=== PATIENT | female | born 1960 | race American Indian/Alaskan Native ===

== ENCOUNTER 2017-04-04 22:01 | Emergency (ER) | payer MEDICARE ==
[2017-04-04 23:29] LABS: Hematocrit 38.8 % (30.3-42.9); Hemoglobin 12.7 gm/dl (10.1-14.3); Mean Corpuscular HGB Conc 33 % (30-34); Mean Corpuscular Hemoglobin 29 pg (28-32); Mean Corpuscular Volume 88 fl (79-97); Platelet Count 241 K/mm3 (140-440); Red Blood Count 4.39 M/mm3 (3.65-5.03); Red Cell Distribution Width 13.9 % (13.2-15.2); White Blood Count 7.5 K/mm3 (4.5-11.0)
--- NOTE | 2017-04-04 23:35 | Cat Scan Report ---
FINAL REPORT PROCEDURE: CT head without contrast. TECHNIQUE: Computerized tomography of the head was performed without contrast material. HISTORY: Headache. COMPARISON: CT head 07/02/2015. Dictation not available. FINDINGS: The patient has had a previous right frontal-temporal craniotomy. There are 2 aneurysm clips near the right side of the [place]. There is a small amount of extra-axial high attenuation material near the previous craniotomy. This is unchanged from the previous study and must represent some calcification within the meninges. There is some patchy, diminished attenuation within the right frontal, temporal and parietal lobes. This is consistent with encephalomalacia. There is some compensatory dilatation of the right lateral ventricle. There is a small focal area of diminished attenuation within the posterior portion of the left frontal lobe. This is close to the motor strip. This is also consistent with encephalomalacia. There are no mass lesions. There is no intracranial hemorrhage. The mastoid air cells are clear as far as visualized. There is mild mucosal thickening in the left posterior ethmoid air cell. IMPRESSION: Previous aneurysm surgery. Patchy bilateral areas of encephalomalacia as described. No evidence of definite change since the previous study.
[2017-04-04 23:47] LABS: INR 1.08 (0.87-1.13); Partial Thromboplastin Time 24.7 Sec. (24.2-36.6)
[2017-04-04 23:50] LABS: Albumin 3.4 g/dL (3.9-5); Albumin/Globulin Ratio 0.7 %; Alkaline Phosphatase 105 units/L (35-129); Blood Urea Nitrogen 12 mg/dL (7-17); Calcium 9.1 mg/dL (8.4-10.2); Carbon Dioxide 29 mmol/L (22-30); Chloride 101.3 mmol/L (98-107); Glucose 83 mg/dL (65-100); Sodium 143 mmol/L (137-145); Total Protein 8.2 g/dL (6.3-8.2)
[2017-04-05] MEDS ORDERED: REGLAN IV ONE (00:04)
[2017-04-05] MEDS ORDERED: NACL 0.9% 1000 ML 1,000 ML IV ONE (00:04)
[2017-04-05] MEDS ORDERED: ATIVAN IV ONE (00:04)
[2017-04-05 00:08] LABS: Alanine Aminotransferase 12 units/L (7-56); Anion Gap 17 mmol/L; Potassium 3.8 mmol/L (3.6-5.0)
--- NOTE | 2017-04-05 00:35 | Emergency Department Report ---
ED Headache HPI - General Chief Complaint: Headache Stated Complaint: DIZZINESS/HEADACHE Time Seen by Provider: 04/04/17 23:38 Source: patient, family Exam Limitations: no limitations - History of Present Illness Initial Comments: 56-year-old female presents to the emergency department complaining of headache. Patient reports onset of right-sided headache beginning earlier today. She reports the headache is behind her right eye and radiates to her face and over the top of her head down to her neck. Patient is unable to describe the pain. She reports mild nausea, but denies vomiting. There has been no blurry vision. There are no other complaints. Timing/Duration: other (this morning) Quality: mild Head Injury Location: occipital, parietal Recent Head Trauma: no recent headache/trauma Associated Symptoms: nausea/vomiting (nausea only) Allergies/Adverse Reactions: Allergies Penicillins Allergy (Verified 01/21/15 11:54) Hives Home Medications: Ambulatory Orders Aspirin [Aspirin TAB] 325 mg PO QDAY 01/21/15 Atorvastatin [Lipitor] 40 mg PO QHS 01/21/15 Lacosamide [Vimpat] 100 mg PO Q12HR 01/21/15 Lisinopril [Zestril TAB] 5 mg PO QDAY 01/21/15 Metoprolol [Lopressor TAB] 25 mg PO DAILY 01/21/15 Sertraline [Zoloft] 100 mg PO QDAY 01/21/15 levETIRAcetam [Keppra TAB] 750 mg PO BID 01/21/15 Gabapentin [Neurontin] 300 mg PO DAILY 07/02/15 Omeprazole [PriLOSEC] 20 mg PO QDAY 07/02/15 Pantoprazole [Protonix TAB] 40 mg PO QDAY 07/02/15 QUEtiapine [SEROquel] 50 mg PO QHS 07/02/15 hydrALAZINE [Apresoline TAB] 25 mg PO Q8H 07/02/15 Butalb/Acetamin/Caff 50-325-40 [Fioricet] 1 each PO Q4H PRN #20 tablet 04/05/17 ED Review of Systems ROS: Stated complaint: DIZZINESS/HEADACHE Other details as noted in HPI Comment: All other systems reviewed and negative Gastrointestinal: nausea Neurological: headache ED Past Medical Hx - Past Medical History Previous Medical History?: Yes Hx Hypertension: Yes 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 aneurysm - Surgical History Past Surgical History?: Yes Hx Coronary Stent: No Hx Internal Defibrillator: No Additional Surgical History: sweat glands rmoved from armpits, groin, and under breast. hysterectomy. clip to brain - Family History Family history: no significant - Social History Smoking Status: Current Every Day Smoker Substance Use Type: None - Medications Home Medications: Home Medications Medication Instructions Recorded Confirmed Last Taken Type Aspirin [Aspirin TAB] 325 mg PO QDAY 01/21/15 07/02/15 Unknown History Atorvastatin [Lipitor] 40 mg PO QHS 01/21/15 07/02/15 Unknown History Lacosamide [Vimpat] 100 mg PO Q12HR 01/21/15 07/02/15 Unknown History Lisinopril [Zestril TAB] 5 mg PO QDAY 01/21/15 07/02/15 Unknown History Metoprolol [Lopressor TAB] 25 mg PO DAILY 01/21/15 07/02/15 Unknown History Sertraline [Zoloft] 100 mg PO QDAY 01/21/15 07/02/15 Unknown History levETIRAcetam [Keppra TAB] 750 mg PO BID 01/21/15 07/02/15 Unknown History Gabapentin [Neurontin] 300 mg PO DAILY 07/02/15 07/02/15 Unknown History Omeprazole [PriLOSEC] 20 mg PO QDAY 07/02/15 07/02/15 Unknown History Pantoprazole [Protonix TAB] 40 mg PO QDAY 07/02/15 07/02/15 Unknown History QUEtiapine [SEROquel] 50 mg PO QHS 07/02/15 07/02/15 Unknown History hydrALAZINE [Apresoline TAB] 25 mg PO Q8H 07/02/15 07/02/15 Unknown History Butalb/Acetamin/Caff 50-325-40 1 each PO Q4H PRN #20 tablet 04/05/17 Unknown Rx [Fioricet] ED Physical Exam - General Limitations: No Limitations General appearance: alert, in no apparent distress - Head Head exam: Present: atraumatic, normocephalic - Eye Eye exam: Present: normal appearance, PERRL, EOMI - ENT ENT exam: Present: normal exam, normal orophraynx, mucous membranes moist - Neck Neck exam: Present: normal inspection, full ROM. Absent: tenderness - Respiratory Respiratory exam: Present: normal lung sounds bilaterally. Absent: respiratory distress - Cardiovascular Cardiovascular Exam: Present: regular rate, normal rhythm, normal heart sounds - GI/Abdominal GI/Abdominal exam: Present: soft, normal bowel sounds. Absent: distended, tenderness - Extremities Exam Extremities exam: Present: normal inspection, full ROM. Absent: tenderness - Back Exam Back exam: Present: normal inspection, full ROM. Absent: tenderness - Neurological Exam Neurological exam: Present: alert, oriented X3. Absent: motor sensory deficit - Skin Skin exam: Present: warm, dry, intact ED Course Vital Signs 04/04/17 04/05/17 04/05/17 22:11 00:00 00:40 Temperature 98.0 F Pulse Rate 65 68 Respiratory 18 15 20 Rate Blood Pressure 157/114 Blood Pressure 142/87 [Right] O2 Sat by Pulse 97 95 94 Oximetry 04/05/17 03:00 Temperature Pulse Rate 68 Respiratory 16 Rate Blood Pressure Blood Pressure 140/91 [Right] O2 Sat by Pulse 95 Oximetry ED Medical Decision Making - Lab Data Result diagrams: 04/04/17 23:11 04/04/17 23:11 - EKG Data -: EKG Interpreted by Sc EKG shows normal: sinus rhythm, axis, QRS complexes, ST-T waves Rate: normal - EKG Data When compared to previous EKG there are: no significant change Interpretation: unchanged when compared t (07/02/2015), other (first degree AV block) - Radiology Data Radiology results: report reviewed Head CT shows no acute intracranial abnormality. - Medical Decision Making Lab and imaging results reviewed and discussed with the patient and family. Patient reports feeling better with medication. Patient will be discharged home at this time. - Differential Diagnosis tension headache, migraine headache, dehydration Critical care attestation.: If time is entered above; I have spent that time in minutes in the direct care of this critically ill patient, excluding procedure time. ED Disposition Clinical Impression: Headache Qualifiers: Headache type: tension-type Headache chronicity pattern: acute headache Intractability: not intractable Qualified Code(s): G44.209 - Tension-type headache, unspecified, not intractable Disposition: DC- TO HOME OR SELFCARE Is pt being admited?: No Condition: Stable Instructions: Acute Headache (ED) Prescriptions: Butalb/Acetamin/Caff 50-325-40 [Fioricet] 1 each PO Q4H PRN #20 tablet PRN Reason: Headache Referrals: PRIMARY CARE, [Primary Care Provider] - 3-5 Days Time of Disposition: 06:21
[2017-04-05 00:45] LABS: Blastocytes % (Manual) 0 %; Diff Status Complete; Platelet Estimate Consistent w Auto; RBC Morphology Normal
[2017-04-05 06:34] VITALS: BP 145/89
== END 2017-04-05 07:16 | disposition home or self-care (01) ==
LOC: ED 22:01
DX: R51 Headache (principal); R11.0 Nausea; I10 Essential (primary) hypertension; M19.90 Unspecified osteoarthritis, unspecified site; F32.9 Major depressive disorder, single episode, unspecified; F03.90 Unspecified dementia, unspecified severity, without behavioral disturbance, psychotic disturbance, mood disturbance, and anxiety; F17.210 Nicotine dependence, cigarettes, uncomplicated; Z79.82 Long term (current) use of aspirin; Z86.73 Personal history of transient ischemic attack (TIA), and cerebral infarction without residual deficits; Z88.0 Allergy status to penicillin
CPT/HCPCS: 36415; 70450; 80053; 85007; 85025; 85610; 85730; 93005; 93010; 96361; 96374; 96375; 99284; J2060; J2765; J7030

== ENCOUNTER 2017-08-14 14:58 | Emergency (ER) | payer MEDICARE, MEDICAID ==
[2017-08-14 16:07] LABS: Hematocrit 41.2 % (30.3-42.9); Hemoglobin 13.5 gm/dl (10.1-14.3); Mean Corpuscular HGB Conc 33 % (30-34); Mean Corpuscular Hemoglobin 29 pg (28-32); Mean Corpuscular Volume 88 fl (79-97); Platelet Count 224 K/mm3 (140-440); Red Blood Count 4.66 M/mm3 (3.65-5.03); Red Cell Distribution Width 14.7 % (13.2-15.2)
[2017-08-14 16:30] LABS: Anion Gap 16 mmol/L; BUN/Creatinine Ratio 16; Blood Urea Nitrogen 11 mg/dL (7-17); Calcium 9.1 mg/dL (8.4-10.2); Carbon Dioxide 28 mmol/L (22-30); Chloride 104.4 mmol/L (98-107); Glucose 112 mg/dL (65-100); Potassium 3.7 mmol/L (3.6-5.0); Sodium 145 mmol/L (137-145)
[2017-08-14 18:15] LABS: Bacteria,Urine 2+ /HPF (Negative); Mucus,Urine FEW /HPF
[2017-08-14 18:16] LABS: Bilirubin,Urine Negative (Negative)
[2017-08-14 18:17] LABS: Blood,Urine Moderate (Negative); Ketones,Urine Negative (Negative); Protein,Urine <15 mg/dL mg/dL (Negative); Urobilinogen,Urine < 2.0 mg/dL (<2.0)
[2017-08-14 18:18] LABS: Leukocyte Esterase,Urine Small (Negative); Nitrite,Urine Negative (Negative)
--- NOTE | 2017-08-14 18:45 | XRay Report ---
FINAL REPORT PROCEDURE: XR ANKLE 3+V LT TECHNIQUE: Three views of the left ankle are obtained HISTORY: fall ankle pain COMPARISON: No prior studies are available for comparison. FINDINGS: Soft tissue swelling is seen. There is no widening of the ankle mortise. There is a tiny bony sliver adjacent to the dorsum of the distal talus. This could possibly be a small avulsed fracture fragment, but could be old or an accessory ossicle. IMPRESSION: Possible small avulsion fracture is seen of the dorsum of the distal talus.
--- NOTE | 2017-08-14 18:46 | XRay Report ---
FINAL REPORT PROCEDURE: XR KNEE 3V LT TECHNIQUE: Three views of the left knee are obtained HISTORY: fall knee pain COMPARISON: No prior studies are available for comparison. FINDINGS: Moderate osteoarthritic changes are seen. Small joint effusion is seen. No fracture or dislocation is seen. IMPRESSION: No fracture is seen.
--- NOTE | 2017-08-14 18:47 | XRay Report ---
FINAL REPORT PROCEDURE: XR HIP 2-3V LT TECHNIQUE: AP view of the pelvis and lateral view of the left hip are obtained HISTORY: fall hip pain COMPARISON: No prior studies are available for comparison. FINDINGS: No widening of the symphysis pubis or SI joints is seen. Arthritic changes are seen in the lower lumbar spine but no arthritic changes are seen in the hips. No fracture or dislocation is seen. IMPRESSION: No fracture is seen.
[2017-08-14] MEDS ORDERED: TORADOL IM ONE (20:26)
[2017-08-14] MEDS ORDERED: TORADOL ONE (20:45)
--- NOTE | 2017-08-14 20:48 | Emergency Department Report ---
ED Fall HPI - General Chief Complaint: Fall Stated Complaint: FALL,LEFT LEG INJURY Time Seen by Provider: 08/14/17 19:43 Source: patient Mode of arrival: Ambulatory - History of Present Illness Initial Comments: pt is a 57 y/o aaf with hx extensive medical hx, ,including arthralgia, chf, copd, cva Dm II and htn, pt has primary care doctor for good follow up could not get appointment for today, s/p fall in bathroom this am, pt advises that "I slipped on the bathroom floor and twisted my knee and ankle" this am the was no loc patients was immediately ambulatory after incident, pt complains for hip knee and ankle pain 4/10 aching primary pain to left medial ankle., pt states pain with ambulation. MD Complaint: fall Onset/Timin -: days(s) Fall From: standing When Fall Occurred: other (10) Fall Witnessed: no Place Fall Occurred: home Loss of Consciousness: none Prolonged Down Time?: no Symptoms Prior to Fall: none Location: other (hip, knee, and ankle left side ) Location - Extremities: Left: Knee, Ankle Severity scale (0 -10): 4 Quality: aching Context: tripped/slipped Associated Symptoms: denies - Related Data Home Medications Medication Instructions Recorded Confirmed Last Taken Aspirin [Aspirin TAB] 325 mg PO QDAY 01/21/15 08/14/17 Unknown Atorvastatin [Lipitor] 40 mg PO QHS 01/21/15 08/14/17 Unknown Lacosamide [Vimpat] 100 mg PO Q12HR 01/21/15 08/14/17 Unknown Lisinopril [Zestril TAB] 5 mg PO QDAY 01/21/15 08/14/17 Unknown Metoprolol [Lopressor TAB] 25 mg PO DAILY 01/21/15 08/14/17 Unknown Sertraline [Zoloft] 100 mg PO QDAY 01/21/15 08/14/17 Unknown levETIRAcetam [Keppra TAB] 750 mg PO BID 01/21/15 08/14/17 Unknown Gabapentin [Neurontin] 300 mg PO DAILY 07/02/15 08/14/17 Unknown Pantoprazole [Protonix TAB] 40 mg PO QDAY 07/02/15 08/14/17 Unknown QUEtiapine [SEROquel] 50 mg PO QHS 07/02/15 08/14/17 Unknown Doxycycline [Vibramycin] 100 mg PO BID PRN 08/14/17 08/14/17 Unknown Norvasc 5 mg PO BID 08/14/17 08/14/17 Unknown Ondansetron [Zofran Odt] 4 mg PO DAILY 08/14/17 08/14/17 Unknown traMADol [Ultram] 50 mg PO Q4HR PRN 08/14/17 08/14/17 Unknown Previous Rx's Medication Instructions Recorded Last Taken Type Butalb/Acetamin/Caff 50-325-40 1 each PO Q4H PRN #20 tablet 04/05/17 Unknown Rx [Fioricet] traMADol [Ultram] 50 mg PO Q8HR PRN #20 tablet 08/14/17 Unknown Rx Allergies Allergy/AdvReac Type Severity Reaction Status Date / Time Penicillins Allergy Hives Verified 01/21/15 11:54 ED Review of Systems ROS: Stated complaint: FALL,LEFT LEG INJURY Other details as noted in HPI Constitutional: denies: chills, fever Eyes: denies: eye pain, eye discharge, vision change ENT: denies: ear pain, throat pain Respiratory: denies: cough, shortness of breath, wheezing Cardiovascular: denies: chest pain, palpitations Endocrine: no symptoms reported Gastrointestinal: denies: abdominal pain, nausea, diarrhea Genitourinary: denies: urgency, dysuria, discharge Musculoskeletal: arthralgia, other (left hip, knee and ankle pain ). 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 aneurysm - Surgical History Hx Coronary Stent: No Hx Internal Defibrillator: No Additional Surgical History: sweat glands rmoved from armpits, groin, and under breast. hysterectomy. clip to brain - Social History Smoking Status: Unknown if ever smoked Substance Use Type: None - Medications Home Medications: Home Medications Medication Instructions Recorded Confirmed Last Taken Type Aspirin [Aspirin TAB] 325 mg PO QDAY 01/21/15 08/14/17 Unknown History Atorvastatin [Lipitor] 40 mg PO QHS 01/21/15 08/14/17 Unknown History Lacosamide [Vimpat] 100 mg PO Q12HR 01/21/15 08/14/17 Unknown History Lisinopril [Zestril TAB] 5 mg PO QDAY 01/21/15 08/14/17 Unknown History Metoprolol [Lopressor TAB] 25 mg PO DAILY 01/21/15 08/14/17 Unknown History Sertraline [Zoloft] 100 mg PO QDAY 01/21/15 08/14/17 Unknown History levETIRAcetam [Keppra TAB] 750 mg PO BID 01/21/15 08/14/17 Unknown History Gabapentin [Neurontin] 300 mg PO DAILY 07/02/15 08/14/17 Unknown History Pantoprazole [Protonix TAB] 40 mg PO QDAY 07/02/15 08/14/17 Unknown History QUEtiapine [SEROquel] 50 mg PO QHS 07/02/15 08/14/17 Unknown History Butalb/Acetamin/Caff 50-325-40 1 each PO Q4H PRN #20 tablet 04/05/17 08/14/17 Unknown Rx [Fioricet] Doxycycline [Vibramycin] 100 mg PO BID PRN 08/14/17 08/14/17 Unknown History Norvasc 5 mg PO BID 08/14/17 08/14/17 Unknown History Ondansetron [Zofran Odt] 4 mg PO DAILY 08/14/17 08/14/17 Unknown History traMADol [Ultram] 50 mg PO Q4HR PRN 08/14/17 08/14/17 Unknown History traMADol [Ultram] 50 mg PO Q8HR PRN #20 tablet 08/14/17 Unknown Rx ED Physical Exam - General Limitations: No Limitations General appearance: alert, in no apparent distress - Head Head exam: Present: atraumatic, normocephalic - Eye Eye exam: Present: normal appearance - ENT ENT exam: Present: mucous membranes moist - Neck Neck exam: Present: normal inspection - Respiratory Respiratory exam: Present: normal lung sounds bilaterally. Absent: respiratory distress - Cardiovascular Cardiovascular Exam: Present: regular rate, normal rhythm. Absent: systolic murmur, diastolic murmur, rubs, gallop - GI/Abdominal GI/Abdominal exam: Present: soft, normal bowel sounds - Rectal Rectal exam: Present: deferred - Extremities Exam Extremities exam: Present: tenderness (left ankle ), normal capillary refill, joint swelling. Absent: pedal edema, calf tenderness - Expanded Lower Extremity Exam Left Hip exam: Present: tenderness (left lateral hip no swelling no ecchymosis no erythema no stepoff rom intact unrestricted ). Absent: swelling, laceration, ecchymosis, deformity, crepidus, dislocation, erythema, external rotation, internal rotation, shortening, pelvic stability Upper Leg exam: Present: normal inspection, full ROM Knee exam: Present: tenderness, pain w/ pronation/supination, full knee extension. Absent: swelling, abrasion, laceration, ecchymosis, deformity, crepidus, dislocation, posterior draw sign, pain/laxity with valgus, pain/ laxity with varus Lower Leg exam: Present: normal inspection, full ROM Ankle exam: Present: tenderness, swelling (left ankle pain to left medial ankle pain with rotation pt is ambulatory ppepb+2 negative thompsons ). Absent: abrasion, laceration, ecchymosis, deformity, crepidus, dislocation, erythema, anterior draw sign Foot/Toe exam: Present: normal inspection. Absent: tenderness, abrasion, laceration, ecchymosis, deformity, crepidus, dislocation, erythema, amputation, puncture wound, foreign body, calcaneal tenderness, tenderness at base of 5th metatarsal, nail avulsion, subungual hematoma Neuro vascular tendon exam: Present: no vascular compromise. Absent: pulse deficit, abnormal cap refill, motor deficit, sensory deficit, tendon deficit, extremity cold to touch, pallor, abnormal 2-point discrimination, decreased fine /light touch, foot drop, peroneal nerve deficit, significant pain with passive ROM of distal joint Gait: Positive: observed and limited by pain ED Course Vital Signs 08/14/17 15:33 Temperature 100.1 F H Pulse Rate 84 Respiratory 18 Rate Blood Pressure 141/88 O2 Sat by Pulse 94 Oximetry ED Medical Decision Making - Lab Data Result diagrams: 08/14/17 15:51 08/14/17 15:51 - Radiology Data Radiology results: report reviewed, image reviewed negative hip, and knee, left ankle ? small closed talus avulsion fracture, - Medical Decision Making pt is a 57 y/o aaf with hx extensive medical hx, ,including arthralgia, chf, copd, cva Dm II and htn, pt has primary care doctor for good follow up could not get appointment for today, s/p fall in bathroom this am, pt advises that "I slipped on the bathroom floor and twisted my knee and ankle" this am the was no loc patients was immediately ambulatory after incident, pt complains for hip knee and ankle pain 4/10 aching primary pain to left medial ankle., pt states pain with ambulation exam pt appears well nad, left ankle is stable pain to medial rotation on ecchymosis no erythema no step off, pt is weight bearing , xray noted ? small tulus avulision fracture, plan mary wrap, ortho shoe, at time pt is ambulatory to baseline per patient , pt for dc to self to home vial pov and family member pt will follow up with podiatry Dr. Bassett in 2 days as scheduled will call tomorrow to confirm appointment. pain is now rated at 2/10 aching , , pt denies symptoms no urgency no frequency no dysuria no hematuria, pt will follow up primary care doctor in 2-3 for follow up ua as she states this is a chronic finding. pt and family member verbalized agreement and understanding of discharge plan. Critical care attestation.: If time is entered above; I have spent that time in minutes in the direct care of this critically ill patient, excluding procedure time. ED Disposition Clinical Impression: Closed fracture of talus of left ankle Qualifiers: Encounter type: initial encounter Fracture morphology: avulsion Fracture alignment: nondisplaced Qualified Code(s): S92.155A - Nondisplaced avulsion fracture (chip fracture) of left talus, initial encounter for closed fracture Fall Qualifiers: Encounter type: initial encounter Qualified Code(s): W19.XXXA - Unspecified fall, initial encounter Disposition: DC-01 TO HOME OR SELFCARE Is pt being admited?: No Does the pt Need Aspirin: No Condition: Good Instructions: Ankle Fracture (ED), Ankle Exercises (GEN) Additional Instructions: follow up Dr. Bassett Podiatry tomorrow call for apointment Prescriptions: traMADol [Ultram] 50 mg PO Q8HR PRN #20 tablet PRN Reason: Pain Referrals: PRIMARY CARE, [Primary Care Provider] - 3-5 Days Forms: Work/School Release Form(ED) Time of Disposition: 21:05
[2017-08-15 01:13] VITALS: BP 149/97
== END 2017-08-14 21:00 | disposition home or self-care (01) ==
LOC: ED 14:58
DX: S92.155A Nondisplaced avulsion fracture (chip fracture) of left talus, initial encounter for closed fracture (principal); Z86.73 Personal history of transient ischemic attack (TIA), and cerebral infarction without residual deficits; R56.9 Unspecified convulsions; M19.90 Unspecified osteoarthritis, unspecified site; F32.9 Major depressive disorder, single episode, unspecified; F03.90 Unspecified dementia, unspecified severity, without behavioral disturbance, psychotic disturbance, mood disturbance, and anxiety; Z79.82 Long term (current) use of aspirin; W01.0XXA Fall on same level from slipping, tripping and stumbling without subsequent striking against object, initial encounter; Y93.89 Activity, other specified; Y92.89 Other specified places as the place of occurrence of the external cause; Y99.8 Other external cause status
CPT/HCPCS: 36415; 73502; 73562; 73610; 80048; 81001; 85027; 96372; 99284; J1885

== ENCOUNTER 2017-10-12 00:17 | Emergency (ER) | payer MEDICAID, MEDICARE ==
[2017-10-12] MEDS ORDERED: KEPPRA 1,000 MG/NS 0.75% 100ML 1,000 MG/100 ML BAG IV ONE (01:00)
[2017-10-12 01:03] VITALS: BP 144/85
[2017-10-12 01:38] LABS: Basophils # (Auto) 0.1 K/mm3 (0.0-0.1); Basophils % (Auto) 1.5 % (0.0-1.8); Eosinophils # (Auto) 0.1 K/mm3 (0.0-0.4); Eosinophils % (Auto) 1.9 % (0.0-4.3); Hematocrit 42.7 % (30.3-42.9); Hemoglobin 14.4 gm/dl (10.1-14.3); Lymphocytes # (Auto) 2.3 K/mm3 (1.2-5.4); Lymphocytes % (Auto) 29.7 % (13.4-35.0); Mean Corpuscular HGB Conc 34 % (30-34); Mean Corpuscular Hemoglobin 30 pg (28-32); Mean Corpuscular Volume 88 fl (79-97); Monocytes # (Auto) 0.5 K/mm3 (0.0-0.8); Platelet Count 244 K/mm3 (140-440); Red Blood Count 4.87 M/mm3 (3.65-5.03); Red Cell Distribution Width 14.6 % (13.2-15.2)
[2017-10-12 02:09] LABS: BUN/Creatinine Ratio 22; Blood Urea Nitrogen 13 mg/dL (7-17); Calcium 8.9 mg/dL (8.4-10.2); Hemolysis Index 27
--- NOTE | 2017-10-12 02:12 | Emergency Department Report ---
ED General Adult HPI - General Chief complaint: Seizure Stated complaint: SEIZURE Time Seen by Provider: 10/12/17 00:39 Source: patient, EMS Mode of arrival: Stretcher Limitations: No Limitations - History of Present Illness Initial comments: Patient is a 57-year-old female past medical history seizures controlled on Keppra who presents status post seizure. History is obtained by patient she states that she takes Keppra and gabapentin for her seizures. Patient states that she is not any pain and her daughter states that she had a seizure for about 20 seconds. Patient was given Versed by EMS. Patient denies having nausea or vomiting and she states that she takes her seizure medication her neurologist is at [place]. Severity scale (0 -10): 0 - Related Data Home Medications Medication Instructions Recorded Confirmed Last Taken Aspirin [Aspirin TAB] 325 mg PO QDAY 01/21/15 08/14/17 Unknown Atorvastatin [Lipitor] 40 mg PO QHS 01/21/15 08/14/17 Unknown Lacosamide [Vimpat] 100 mg PO Q12HR 01/21/15 08/14/17 Unknown Lisinopril [Zestril TAB] 5 mg PO QDAY 01/21/15 08/14/17 Unknown Metoprolol [Lopressor TAB] 25 mg PO DAILY 01/21/15 08/14/17 Unknown Sertraline [Zoloft] 100 mg PO QDAY 01/21/15 08/14/17 Unknown levETIRAcetam [Keppra TAB] 750 mg PO BID 01/21/15 08/14/17 Unknown Gabapentin [Neurontin] 300 mg PO DAILY 07/02/15 08/14/17 Unknown Pantoprazole [Protonix TAB] 40 mg PO QDAY 07/02/15 08/14/17 Unknown QUEtiapine [SEROquel] 50 mg PO QHS 07/02/15 08/14/17 Unknown Doxycycline [Vibramycin] 100 mg PO BID PRN 08/14/17 08/14/17 Unknown Norvasc 5 mg PO BID 08/14/17 08/14/17 Unknown Ondansetron [Zofran Odt] 4 mg PO DAILY 08/14/17 08/14/17 Unknown traMADol [Ultram] 50 mg PO Q4HR PRN 08/14/17 08/14/17 Unknown Previous Rx's Medication Instructions Recorded Last Taken Type Butalb/Acetamin/Caff 50-325-40 1 each PO Q4H PRN #20 tablet 04/05/17 Unknown Rx [Fioricet] traMADol [Ultram] 50 mg PO Q8HR PRN #20 tablet 08/14/17 Unknown Rx Allergies Allergy/AdvReac Type Severity Reaction Status Date / Time Penicillins Allergy Hives Verified 01/21/15 11:54 ED Review of Systems ROS: Stated complaint: SEIZURE Other details as noted in HPI Constitutional: denies: chills, fever Eyes: denies: eye pain, eye discharge, vision change ENT: denies: ear pain, throat pain Respiratory: denies: cough, shortness of breath, wheezing Cardiovascular: denies: chest pain, palpitations Endocrine: no symptoms reported Gastrointestinal: denies: abdominal pain, nausea, diarrhea Genitourinary: denies: urgency, dysuria, discharge Musculoskeletal: denies: back pain, joint swelling, arthralgia Skin: denies: rash, lesions Neurological: other (seizure ). 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 aneurysm - Surgical History Past Surgical History?: Yes Hx Coronary Stent: No Hx Internal Defibrillator: No Additional Surgical History: sweat glands rmoved from armpits, groin, and under breast. hysterectomy. clip to brain - Social History Smoking Status: Never Smoker - Medications Home Medications: Home Medications Medication Instructions Recorded Confirmed Last Taken Type Aspirin [Aspirin TAB] 325 mg PO QDAY 01/21/15 08/14/17 Unknown History Atorvastatin [Lipitor] 40 mg PO QHS 01/21/15 08/14/17 Unknown History Lacosamide [Vimpat] 100 mg PO Q12HR 01/21/15 08/14/17 Unknown History Lisinopril [Zestril TAB] 5 mg PO QDAY 01/21/15 08/14/17 Unknown History Metoprolol [Lopressor TAB] 25 mg PO DAILY 01/21/15 08/14/17 Unknown History Sertraline [Zoloft] 100 mg PO QDAY 01/21/15 08/14/17 Unknown History levETIRAcetam [Keppra TAB] 750 mg PO BID 01/21/15 08/14/17 Unknown History Gabapentin [Neurontin] 300 mg PO DAILY 07/02/15 08/14/17 Unknown History Pantoprazole [Protonix TAB] 40 mg PO QDAY 07/02/15 08/14/17 Unknown History QUEtiapine [SEROquel] 50 mg PO QHS 07/02/15 08/14/17 Unknown History Butalb/Acetamin/Caff 50-325-40 1 each PO Q4H PRN #20 tablet 04/05/17 08/14/17 Unknown Rx [Fioricet] Doxycycline [Vibramycin] 100 mg PO BID PRN 08/14/17 08/14/17 Unknown History Norvasc 5 mg PO BID 08/14/17 08/14/17 Unknown History Ondansetron [Zofran Odt] 4 mg PO DAILY 08/14/17 08/14/17 Unknown History traMADol [Ultram] 50 mg PO Q4HR PRN 08/14/17 08/14/17 Unknown History traMADol [Ultram] 50 mg PO Q8HR PRN #20 tablet 08/14/17 Unknown Rx ED Physical Exam - General Limitations: No Limitations General appearance: alert, in no apparent distress - Head Head exam: Present: atraumatic, normocephalic - Eye Eye exam: Present: normal appearance - ENT ENT exam: Present: mucous membranes moist - Neck Neck exam: Present: normal inspection - Respiratory Respiratory exam: Present: normal lung sounds bilaterally. Absent: respiratory distress - Cardiovascular Cardiovascular Exam: Present: regular rate, normal rhythm. Absent: systolic murmur, diastolic murmur, rubs, gallop - GI/Abdominal GI/Abdominal exam: Present: soft, normal bowel sounds - Extremities Exam Extremities exam: Present: normal inspection - Back Exam Back exam: Present: normal inspection - Neurological Exam Neurological exam: Present: alert, oriented X3 - Psychiatric Psychiatric exam: Present: normal affect, normal mood - Skin Skin exam: Present: warm, dry, intact, normal color. Absent: rash ED Course Vital Signs 10/12/17 01:00 Temperature 98.5 F Pulse Rate 113 H Respiratory 16 Rate Blood Pressure 144/85 [Left] O2 Sat by Pulse 98 Oximetry ED Medical Decision Making - Lab Data Result diagrams: 10/12/17 01:23 10/12/17 00:54 Lab Results 10/12/17 Range/Units 01:23 WBC 7.8 (4.5-11.0) K/mm3 RBC 4.87 (3.65-5.03) M/mm3 Hgb 14.4 H (10.1-14.3) gm/dl Hct 42.7 (30.3-42.9) % MCV 88 (79-97) fl MCH 30 (28-32) pg MCHC 34 (30-34) % RDW 14.6 (13.2-15.2) % Plt Count 244 (140-440) K/mm3 Lymph % (Auto) 29.7 (13.4-35.0) % Yell % (Auto) 6.0 (0.0-7.3) % Eos % (Auto) 1.9 (0.0-4.3) % Baso % (Auto) 1.5 (0.0-1.8) % Lymph # 2.3 (1.2-5.4) K/mm3 Yell # 0.5 (0.0-0.8) K/mm3 Eos # 0.1 (0.0-0.4) K/mm3 Baso # 0.1 (0.0-0.1) K/mm3 Seg Neutrophils % 60.9 (40.0-70.0) % Seg Neutrophils # 4.8 (1.8-7.7) K/mm3 - Medical Decision Making Chief medical diagnosis: Seizure secondary to medication noncompliance Differential medical diagnosis: electrolyte abnormality, anemia I will get CBC, CMP, urinalysis patient's lab work is unremarkable I will send patient home. Critical care attestation.: If time is entered above; I have spent that time in minutes in the direct care of this critically ill patient, excluding procedure time. ED Disposition Clinical Impression: Seizure, Seizure disorder Disposition: - TO HOME OR SELFCARE Is pt being admited?: No Does the pt Need Aspirin: No Condition: Stable Instructions: Epilepsy (ED) Referrals: JOHN MORE MD [Primary Care Provider] - 3-5 Days
== END 2017-10-12 10:36 | disposition home or self-care (01) ==
LOC: ED 00:17
DX: G40.909 Epilepsy, unspecified, not intractable, without status epilepticus (principal); I10 Essential (primary) hypertension; M19.90 Unspecified osteoarthritis, unspecified site; F32.9 Major depressive disorder, single episode, unspecified; F03.90 Unspecified dementia, unspecified severity, without behavioral disturbance, psychotic disturbance, mood disturbance, and anxiety; Z90.710 Acquired absence of both cervix and uterus; Z86.73 Personal history of transient ischemic attack (TIA), and cerebral infarction without residual deficits; Z98.890 Other specified postprocedural states; Z88.0 Allergy status to penicillin; Z79.899 Other long term (current) drug therapy
CPT/HCPCS: 36415; 80048; 85025; 96374; 99284; J1953